=== PATIENT | female | born 1945 | race Caucasian/White ===

== ENCOUNTER 2018-02-15 00:01 | Inpatient (IN) | payer MEDICARE ==
--- NOTE | 2018-02-15 00:27 | EDM.PDOC ---
ED HPI GENERAL MEDICAL PROBLEM - General Chief Complaint: Abdominal Pain Stated Complaint: [facility] Time Seen by Provider: 02/15/18 00:05 Source of Information: Reports: Patient, EMS History Limitations: Reports: No Limitations - History of Present Illness INITIAL COMMENTS - FREE TEXT/NARRATIVE: 72-year-old female was had back pain most of the day, which progressed into abdominal pain this afternoon was seen in the emergency room down in [place] and diagnosed with a partial small bowel obstruction. Her symptoms are fairly well-controlled with pain medication. She had several episodes of emesis today, but she has had 3 bowel movements. No fevers or chills. She was sent up here for treatment as there hospital was full and she originally received her surgeries including gastric bypass here in [place]. Onset: Gradual Severity: Moderate (Over the course of the day symptoms worsened) Associated Symptoms: Reports: Loss of Appetite, Nausea/Vomiting. Denies: Cough Abdominal Pain Score (Numeric/FACES): 2 - Related Data Allergies Allergy/AdvReac Type Severity Reaction Status Date / Time No Known Allergies Allergy Verified 02/15/18 00:38 Home Meds: Home Meds Calcium Carbonate [Calcium] 1,000 mg PO DAILY 02/15/18 [History] Cholecalciferol (Vitamin D3) [Vitamin D] 1,000 unit PO DAILY 02/15/18 [History] Gabapentin [Neurontin] 300 mg PO DAILY PRN 02/15/18 [History] Vitamin B Complex 1 cap PO DAILY 02/15/18 [History] ED ROS GENERAL - Review of Systems Review Of Systems: See Below Constitutional: Reports: Malaise. Denies: Fever, Chills, Weakness HEENT: Reports: No Symptoms Respiratory: Denies: Shortness of Breath Cardiovascular: Denies: Chest Pain GI/Abdominal: Reports: Abdominal Pain, Nausea, Vomiting : Reports: No Symptoms Neurological: Reports: No Symptoms ED EXAM, GI/ABD - Physical Exam Exam: See Below Exam Limited By: No Limitations General Appearance: Alert, No Apparent Distress (Looks uncomfortable but not distressed) Eyes: Bilateral: Normal Appearance (No jaundice) Respiratory/Chest: No Respiratory Distress, Lungs Clear Cardiovascular: Regular Rate, Rhythm GI/Abdominal Exam: Normal Bowel Sounds, Tender (She is tender to palpation across the center of the abdomen, no focal guarding or rebound) Course - Vital Signs Last Recorded V/S: Last Vital Signs Temp 97.4 F 02/15/18 01:10 Pulse 79 02/15/18 01:10 Resp 16 02/15/18 01:10 BP 136/59 L 02/15/18 01:10 Pulse Ox 93 L 02/15/18 01:19 - Orders/Labs/Meds Orders: Medication Orders Hydromorphone HCl (Dilaudid Hand Dry Cleaner 15 Mg In Ns 30 Ml) 15 mg IV ASDIRECTED SHAHZAD; Protocol Last Admin: 02/15/18 01:46 Dose: 15 mg Dextrose/Lactated Ringer's (Dextrose 5%-Lactated Ringers) 1,000 mls @ 125 mls/ hr IV ASDIRECTED SHAHZAD Last Admin: 02/15/18 01:45 Dose: 125 mls/hr Ondansetron HCl (Zofran) 4 mg IV Q4H PRN PRN Reason: NAUSEA Meds: Medications Generic Name Dose Route Start Last Admin Trade Name Freq PRN Reason Stop Dose Admin Hydromorphone HCl 15 mg 02/15/18 01:30 02/15/18 01:46 Dilaudid Hand Dry Cleaner 15 Mg In Ns 30 Ml IV 15 mg ASDIRECTED SHAHZAD Administration Protocol Dextrose/Lactated Ringer's 1,000 mls @ 125 mls/hr 02/15/18 01:15 02/15/18 01: 45 Dextrose 5%-Lactated Ringers IV 125 mls/hr ASDIRECTED SHAHZAD Administration Ondansetron HCl 4 mg 02/15/18 01:04 Zofran IV Q4H PRN NAUSEA - Re-Assessments/Exams Free Text/Narrative Re-Assessment/Exam: 02/15/18 00:26 Patient is stable and afebrile. We should be able to treat her as an inpatient overnight with pain control and hydration, and she can get a surgical assessment in the morning. Dr. Novoa was informed and will provide orders. Departure - Departure Time of Disposition: 00:40 Disposition: Admitted As Inpatient 65 Condition: Fair Clinical Impression: Small bowel obstruction - Discharge Information
[2018-02-15] MEDS ORDERED: Ondansetron 4 MG/2 ML SDV IV PRN (01:04)
[2018-02-15] MEDS ORDERED: Dextrose 5%-Lactated Ringers 1,000 ML IV SCH ×2 (01:15→11:45)
[2018-02-15] MEDS ORDERED: HYDROmorphone/Normal Saline 15 MG/30 ML PCA IV SCH (01:30)
[2018-02-15] MEDS ORDERED: Midazolam 1 MG/ML 2 ML SDV ONE (07:56)
[2018-02-15] MEDS ORDERED: fentaNYL 250 MCG/5 ML SDV ONE (07:56)
[2018-02-15] MEDS ORDERED: Ropivacaine 35 ML, Dexamethasone 8 MG, EPINEPHrine 0.4 MG, Sodium Chloride 0.9% 42.6 ML NERVRT SCH ×4 (08:00)
[2018-02-15] MEDS ORDERED: Ketamine 500 MG/5 ML MDV IV SCH (08:00)
[2018-02-15] MEDS ORDERED: cefOXitin 2 GM in Sodium Chloride 0.9% 50 ML IV ONE (08:00)
[2018-02-15] MEDS ORDERED: Rocuronium 50 MG/5 ML Vial ONE (08:19)
[2018-02-15] MEDS ORDERED: Propofol 200 MG/20 ML SDV ONE (08:19)
[2018-02-15] MEDS ORDERED: Glycopyrrolate 0.2 MG/ML 5 ML MDV ONE (08:19)
[2018-02-15] MEDS ORDERED: Dexamethasone 4 MG/ML SDV ONE (08:19)
[2018-02-15] MEDS ORDERED: Ondansetron 4 MG/2 ML SDV ONE (08:19)
[2018-02-15] MEDS ORDERED: Succinylcholine 200 MG/10 ML MDV ONE (08:19)
[2018-02-15] MEDS ORDERED: Neostigmine Methylsulfate 1 MG/ML 5 ML Syringe ONE (08:19)
[2018-02-15] MEDS ORDERED: Meropenem 500 MG SDV ONE (08:41)
[2018-02-15] MEDS ORDERED: Meropenem 500 MG SDV IRR ONE (08:45)
[2018-02-15] MEDS ORDERED: Naloxone 0.4 MG/ML SDV IV PRN (12:00)
[2018-02-15] MEDS ORDERED: Labetalol 20 MG/4 ML Syringe IVPUSH PRN (12:00)
[2018-02-15] MEDS ORDERED: hydrOXYzine HCl 100 MG/2 ML SDV IM PRN (12:00)
[2018-02-15] MEDS ORDERED: SCOPOLAMINE PATCH CHECK TOP SCH (12:00)
[2018-02-15] MEDS ORDERED: diphenhydrAMINE 50 MG/ML SDV IVPUSH PRN (12:00)
[2018-02-15] MEDS ORDERED: Metoclopramide 10 MG/2 ML SDV IVPUSH PRN (12:00)
[2018-02-15] MEDS: Acetaminophen Soln 650 MG/20.3 ML UD Cup PO SCH ×2 (14:05→17:09)
[2018-02-15] MEDS: Gabapentin 250 MG/5 ML Solution ML 470 ML Bottle PO SCH ×2 (14:06→22:04)
[2018-02-15] MEDS: cefOXitin 2 GM in Sodium Chloride 0.9% 50 ML IV SCH ×2 (15:27→22:05)
[2018-02-15] MEDS: MVI, Adult with Vitamin K 10 ML, Thiamine 200 MG, Chromium/Copper/Mang/Selen/Zn 1 ML in... IV SCH ×4 (15:27)
[2018-02-15] MEDS: Pantoprazole 40 MG Vial IVPUSH SCH (17:08)
[2018-02-15] MEDS: Heparin Sodium 5,000 Units/ML Vial SUBCUT SCH (17:08)
[2018-02-16] MEDS: Acetaminophen Soln 650 MG/20.3 ML UD Cup PO SCH ×4 (01:00→17:09)
[2018-02-16] MEDS: cefOXitin 2 GM in Sodium Chloride 0.9% 50 ML IV SCH ×2 (02:14→08:38)
[2018-02-16] MEDS ORDERED: Iohexol 647 MG/ML 50 ML SDV PO SCH (04:00)
[2018-02-16] MEDS: Heparin Sodium 5,000 Units/ML Vial SUBCUT SCH ×2 (06:21→17:09)
[2018-02-16] MEDS ORDERED: HYDROmorphone 2 MG Tab PO PRN (07:55)
[2018-02-16] MEDS ORDERED: Dextrose 5%-Lactated Ringers 1,000 ML IV SCH (08:00)
[2018-02-16] MEDS: Gabapentin 250 MG/5 ML Solution ML 470 ML Bottle PO SCH ×3 (08:40→20:49)
[2018-02-16] MEDS: Celecoxib 200 MG Cap PO SCH (08:40)
[2018-02-16] MEDS ORDERED: Docusate Sodium Liquid 100 MG/10 ML UD Cup JTUBE SCH (09:00)
[2018-02-16] MEDS ORDERED: Magnesium Hydroxide 400 MG/5 ML Susp 30 ML Cup JTUBE SCH (09:00)
[2018-02-16] MEDS: Magnesium Sulfate/Water 2 GM in Premix Bag 1 BAG IV SCH ×3 (10:17→22:08)
[2018-02-16] MEDS: MVI, Adult with Vitamin K 10 ML, Thiamine 200 MG, Chromium/Copper/Mang/Selen/Zn 1 ML in... IV SCH ×4 (17:08)
[2018-02-16] MEDS: Pantoprazole 40 MG Vial IVPUSH SCH (17:09)
--- NOTE | 2018-02-16 17:18 | PN ---
DATE OF SERVICE: 02/16/2018 The patient has been afebrile with stable vital signs subsequent to revision of her jejunojejunostomy and lysis of adhesions yesterday. No major problems were noted overnight. She is little bit sleepy, but not receiving much in the way of pain medicine. We will order oral Dilaudid in addition to the Tylenol, Celebrex, and gabapentin orally today. 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 Magnesium is marginally low and that will be supplemented today. Santana Novoa MD /[id number]
[2018-02-17] MEDS: Acetaminophen Soln 650 MG/20.3 ML UD Cup PO SCH ×3 (00:10→11:23)
[2018-02-17] MEDS: Magnesium Sulfate/Water 2 GM in Premix Bag 1 BAG IV SCH (03:42)
[2018-02-17] MEDS: Heparin Sodium 5,000 Units/ML Vial SUBCUT SCH (05:54)
[2018-02-17] MEDS: Celecoxib 200 MG Cap PO SCH (08:07)
[2018-02-17] MEDS: Gabapentin 250 MG/5 ML Solution ML 470 ML Bottle PO SCH (08:09)
[2018-02-17] MEDS ORDERED: Cyanocobalamin (Vitamin B12) 1,000 MCG/ML SDV IM ONE (09:00)
--- NOTE | 2018-02-17 09:27 | CR ---
UGI wo KUB HISTORY: eval R-Y GBP FINDINGS: After administration of oral contrast, upright views were obtained. Post operative changes gastric bypass. Surgical drains in place. No evidence for leak. Contrast passes freely into proximal small bowel loops. Surgical clips right upper quadrant. IMPRESSION: No evidence for leak or obstruction.
--- NOTE | 2018-02-18 07:56 | DISCH ---
ADMISSION DIAGNOSES: 1. Partial small bowel obstruction. 2. SP Nagelica-en-Y gastric bypass surgery. 3. Unspecified surgical malabsorption. 4. B12 deficiency. 5. Elevated blood pressure, urge incontinence, and trigeminal neuralgia. DISCHARGE DIAGNOSES: Exploratory laparotomy with lysis of extensive adhesions and resection and revision of the jejunostomy component of the Angelica-en-Y gastric bypass surgery and repair of incarcerated incisional hernia and placement of Interceed mesh for adhesive small bowel obstruction with fixed stricture at the JJ and incarcerated incisional hernia and extensive adhesions. Date of surgery 02/15/2018. Surgeon, Santana Novoa MD. HISTORY: Latha Holloway is a 72-year-old female who was transferred by ambulance from [place], [place]. After preoperative evaluation and discussion of possible risks and possible complications, she wished to proceed with surgical procedure. HOSPITAL COURSE: Latha had her surgery on 02/15/2018. She had no operative complications. On postoperative day #1, she was started on step-3 gastric bypass diet. She was changed to oral pain medication. Her activity was good. On postoperative day #2, she was ready to be discharged to home without any complications. PHYSICAL EXAMINATION: VITAL SIGNS: Latha is a 72-year-old female. Height is 5 feet 2 inches. Weight is 161 pounds. TPR 96.5, 78, 9; prior to that her respirations had been running 16. Blood pressure 96/59. O2 by pulse oximetry is 99%. HEENT: Negative. NECK: Supple. HEART: Regular rate and rhythm. LUNGS: Clear. ABDOMEN: Aquacel dressing is over incision. This will be removed prior to discharge. Abdominal binder is on. EXTREMITIES: Without peripheral edema. DISPOSITION: Discharged to home. CONDITION: Stable and improving. FOLLOWUP APPOINTMENT: With Anusha Sampson PA-C on 02/26/2018 at 11:00 a.m. HOME MEDICATIONS: 1. Tylenol 650 mg q.6 hours scheduled. 2. Dilaudid 2 mg 1 to 2 every 4 hours p.r.n. pain #30. 3. She is to resume her home medications of vitamin D3, Neurontin 300 mg daily p.r.n. pain, vitamin B complex 1 daily. DISCHARGE INSTRUCTIONS: 1. Diet after discharge, step-3 gastric bypass diet, 65 g of protein, drink 8 to 10 glasses of water a day. 2. Activity; no lifting greater than 10 pounds for 6 weeks. 3. Driving, do not drive while on pain medication. 4. Shower/bathing, may shower. 5. Notify provider if any fever, increased pain, nausea, or vomiting. 6. Keep site clean and dry. 7. Wear abdominal binder for 6 weeks and then as tolerated. 8. Special instruction, use incentive spirometer 10 times every hour while awake for 1 week.
--- NOTE | 2018-02-24 08:08 | OR ---
DATE OF PROCEDURE: 02/15/2018 PREOPERATIVE DIAGNOSIS: Small bowel obstruction. POSTOPERATIVE DIAGNOSES: 1. Adhesive small bowel obstruction associated with fixed stricture at jejunojejunostomy. 2. Incarcerated incisional hernia. 3. Extensive intra-abdominal adhesions. OPERATIVE PROCEDURES: Exploratory laparotomy with lysis of extensive adhesions and: 1. Resection and revision of jejunojejunostomy component of Angelica-en-Y gastric bypass (70771). 2. Repair of incarcerated incisional hernia (29108). 3. Placement of Interceed mesh to limit recurrent adhesion formation between pelvic and abdominal cardoza and underlying viscera (78363). ANESTHESIA: General. INDICATION FOR PROCEDURE: This is a 72-year-old transferred with a picture of small bowel obstruction. She is status post previous Angelica-en-Y gastric bypass. Plan is to proceed with an exploratory laparotomy, and open laparotomy will be undertaken due to the degree of distention of the small bowel and risks inherent with placement of a laparoscopic trocar in that setting, as well as intraoperative spill of the distended bowel upon its manipulation. The possible need for resection was gone over. Potential risks including bleeding, infection, leaks from various GI tract closures, probable recurrent bowel obstruction over time, as well as the possibility of cardiopulmonary, septic, or hemorrhagic complications leading to were all discussed, and the patient wishes to proceed. DETAILS OF PROCEDURE: The patient was taken to the operating room and placed in a supine position. After general endotracheal anesthesia was induced, bilateral subcostal transversus abdominis plane blocks were placed, and the abdomen was prepped and draped. An upper midline incision was made from the umbilicus to roughly two-thirds up toward the xiphoid. This was carried down through the full thickness of the abdominal wall. Upon entering the peritoneal cavity, fairly extensive adhesions were encountered between the small bowel and pelvic and abdominal cardoza. These were taken down, along with omental adhesions. The point of obstruction appeared to be at the point where the Angelica limb entered the jejunojejunostomy. This was acutely angulated, and also it also created quite a bit of back pressure on the biliopancreatic limb. On lysis of adhesions, it became evident that the patient still had a fixed stricture at the point where the Angelica limb came into the jejunojejunostomy, mandating that that anastomosis now be revised. The Angelica limb, as it entered the jejunojejunostomy, was then divided with the MARCO stapler. To facilitate mobility, a small amount of the mesentery beneath the distal end of the Angelica limb was divided with mesenteric loads and this section of small bowel divided and delivered from the field. The patient was noted to have, at this point, a Angelica limb measuring 140 cm, and we then selected the patient to have a common limb of 240 cm with small opening traced back 240 cm from the ileocecal valve. At that point, a roop-rh-yqmw enteroenterostomy, reestablishing the revised jejunojejunostomy, was accomplished with internal firing of the Endo-MARCO 60-mm stapler. The common opening was closed transversely with the same stapler, angles anastomosed, and mesenteric defect approximated with some 3-0 Vicryl stitch, along with a silk stitch for the mesenteric defect and also then reinforced with some fibrin sealant. The abdomen was then irrigated with antibiotic-containing saline solution. So as to limit recurrent adhesion formation between the pelvic and abdominal cardoza and underlying viscera, an Interceed mesh was placed from the pelvis, just above the bladder, upward across the abdominal wall. The midline fascia was then approximated with #2 Vicryl stitch. During the initial entrance into the abdomen, an incarcerated incisional hernia was noted, containing some preperitoneal fat and a tongue of omentum. This was then removed, and the hernia was then closed concurrently with the fascial closure. The subcutaneous tissue was then drained with a 10-Cymraes round Miguel-Akers drain. The incision closed with 3-0 and 4- 0 Vicryl stitch deep and valencia for the skin. Drain was affixed to the skin with a 4-0 Vicryl stitch. The patient was taken to the recovery room in a satisfactory condition. There were no evident complications. Santana Novoa MD /[id number]
== END 2018-02-17 12:10 | disposition home or self-care (01) | DRG 336 ==
LOC: JP.ED 00:01 → JP.2SS 00:29
PROVIDERS: ADMIT Surgery; ATTEND Surgery
PROC: 0DBA0ZX Excision of Jejunum, Open Approach, Diagnostic (ICD-10-PCS; principal; 2018-02-15)
PROC: 0WQF0ZZ Repair Abdominal Wall, Open Approach (ICD-10-PCS; 2018-02-15)
PROC: 3E0M05Z Introduction of Adhesion Barrier into Peritoneal Cavity, Open Approach (ICD-10-PCS; 2018-02-15)
PROC: 0DNU0ZZ Release Omentum, Open Approach (ICD-10-PCS; 2018-02-15)
PROC: 0DN80ZZ Release Small Intestine, Open Approach (ICD-10-PCS; 2018-02-15)
PROC: 0DNW0ZZ Release Peritoneum, Open Approach (ICD-10-PCS; 2018-02-15)
PROC: 3E0T3BZ Introduction of Anesthetic Agent into Peripheral Nerves and Plexi, Percutaneous Approach (ICD-10-PCS; 2018-02-15)
DX: K56.600 Partial intestinal obstruction, unspecified as to cause (principal); K56.51 Intestinal adhesions [bands], with partial obstruction; K91.2 Postsurgical malabsorption, not elsewhere classified; K43.0 Incisional hernia with obstruction, without gangrene; E53.8 Deficiency of other specified B group vitamins; Z98.84 Bariatric surgery status; Z98.0 Intestinal bypass and anastomosis status; R03.0 Elevated blood-pressure reading, without diagnosis of hypertension; N39.41 Urge incontinence; G50.0 Trigeminal neuralgia
CPT/HCPCS: 36415; 74240; 74240-26; 80053; 82728; 83735; 83880; 84100; 85027; 88302; 88307; 94762; 99285; A9270-GY; C9113; J0171; J0330; J0694; J1100; J1170; J1644; J2185; J2250; J2405; J2704; J2710; J2795; J3010; J3411; J3420; J3475; J7042; J7050; Q9967

== ENCOUNTER 2020-07-09 10:07 | Emergency (ER) | payer MEDICARE ==
[2020-07-09] MEDS ORDERED: Sodium Chloride 0.9% 10 ML Syringe FLUSH PRN (11:08)
[2020-07-09] MEDS ORDERED: Sodium Chloride 0.9% 1,000 ML IV ONE (11:10)
[2020-07-09] MEDS ORDERED: Sodium Chloride 0.9% 1,000 ML IV SCH (11:15)
--- NOTE | 2020-07-09 11:20 | EDM.PDOC ---
ED HPI GENERAL MEDICAL PROBLEM - General Chief Complaint: Gastrointestinal Problem Stated Complaint: DIARRHEA Time Seen by Provider: 07/09/20 11:05 Source of Information: Reports: Patient History Limitations: Reports: No Limitations - History of Present Illness INITIAL COMMENTS - FREE TEXT/NARRATIVE: Latha is a very pleasant 75 year old female who presents to the ED today with c /o of a 3 month long hx of diarrhea, described as orange and oily, denies any blood in stool. Patient denies any abdominal pain, nausea or vomiting, hx of gastric bypass with revision 2 years ago. Patient reports that she thinks she may have been on an antibiotic for a UTI prior to the onset of all of this. Taking Pepto with Imodium without any relief. Patient denies any fever. Patient states her stool was checked 3 weeks ago and was "negative for parasites". Patient is not certain if it was checked for Clostridium Difficile, today was the first time she hear that term. Onset: Gradual (3 Months) - Related Data Allergies Allergy/AdvReac Type Severity Reaction Status Date / Time No Known Allergies Allergy Verified 07/09/20 10:45 Home Meds: Home Meds Cholecalciferol (Vitamin D3) [Vitamin D] 1,000 unit PO DAILY 02/15/18 [History] Gabapentin [Neurontin] 100 mg PO TID 02/15/18 [History] Vitamin B Complex 1 cap PO DAILY 02/15/18 [History] Acetaminophen [Tylenol] 650 mg PO Q6H PRN 07/09/20 [History] Cyanocobalamin/Folic Acid [Vitamin J06-[id number] Acid] 1 each PO DAILY 07/09/20 [History] lisinopriL [Lisinopril] 10 mg PO DAILY 07/09/20 [History] Past Medical History HEENT History: Reports: Other (See Below) Other HEENT History: TMJ Cardiovascular History: Reports: Hypertension Respiratory History: Reports: Other (See Below) Other Respiratory History: bronchasscopy for a mass resolved on its own Gastrointestinal History: Reports: Cholelithiasis, Diverticulosis Genitourinary History: Reports: Renal Calculus, Other (See Below) Other Genitourinary History: urge incontinence HELPER ELECTRICAL History: Reports: Fibroids, Musculoskeletal History: Reports: Other (See Below) Other Musculoskeletal History: derangement of lateral meniscus right. bakers cyst Neurological History: Reports: Other (See Below) Other Neuro History: TMJ Endocrine/Metabolic History: Reports: Obesity/BMI 30+ Other Endocrine/Metabolic History: Rny 7 years ago with 140lb weight loss Hematologic History: Reports: Other (See Below) Other Hematologic History: neutropenia - Infectious Disease History Infectious Disease History: Reports: Chicken Pox - Past Surgical History HEENT Surgical History: Reports: Other (See Below) Other HEENT Surgeries/Procedures: throat and nose for sleep apena Cardiovascular Surgical History: Reports: None Respiratory Surgical History: Reports: Lung Biopsies GI Surgical History: Reports: Bariatric Procedure, Cholecystectomy, Tasia Fundoplication Other GI Surgeries/Procedures: palatectomy partial Female Surgical History: Reports: Breast Biopsy, Hysterectomy Neurological Surgical History: Reports: None Musculoskeletal Surgical History: Reports: None Social & Family History - Tobacco Use Smoking Status *Q: Never Smoker - Caffeine Use Caffeine Use: Reports: Coffee - Recreational Drug Use Recreational Drug Use: No ED ROS GENERAL - Review of Systems Review Of Systems: Comprehensive ROS is negative, except as noted in HPI. ED EXAM, GI/ABD - Physical Exam Exam: See Below Exam Limited By: No Limitations General Appearance: Alert, WD/WN, No Apparent Distress Nose: Normal Inspection Throat/Mouth: Normal Inspection Head: Atraumatic Neck: Normal Inspection Cardiovascular: Normal Peripheral Pulses, Regular Rate, Rhythm GI/Abdominal Exam: Normal Bowel Sounds, Soft, Non-Tender, Abnormal Bowel Sounds (Hyperactive) Back Exam: Normal Inspection Extremities: Normal Inspection Neurological: Alert, Oriented, CN II-XII Intact Psychiatric: Normal Affect, Normal Mood Lymphatic: No Adenopathy Course - Vital Signs Last Recorded V/S: Last Vital Signs Temp 36.3 C 07/09/20 10:39 Pulse 82 07/09/20 10:39 Resp 16 07/09/20 10:39 BP 173/79 H 07/09/20 10:39 Pulse Ox 99 07/09/20 10:39 Latha is a very pleasant 75 year old female, presents with a 3 month hx of diarrhea, please refer to HPI and focused exam. Patient here is mildly hypertensive but otherwise hemodynamically stable and afebrile. Exam reveals some mild hyperactive bowel sounds and mild pallor, otherwise negative. C diff is negative today. White count is normal, HGB stable, patient mildly elevated creatinine and BUN consistent with mild dehydration. Electrolytes are stable. Patient was given a liter of NS and is feeling much better. Stool here was actually soft, no liquid in nature. Patient strongly encouraged to start probiotics pending enteric culture and stay well hydrated. Patient can follow up with primary surgeon next week given hx of Gastric Bypass and revision. Patient may benefit from GI referral if symptoms persist. Reasons to return to the ED were discussed. Patient and agreeable and patient discharged in stable condition. - Orders/Labs/Meds Orders: Active Orders 24 hr Category Date Time Status Peripheral IV Care [RC] . DIRECTED Care 07/09/20 11:08 Active CULTURE STOOL + SHIGATOX [RM] Stat Lab 07/09/20 11:30 Received Sodium Chloride 0.9% [Normal Saline] 1,000 ml Med 07/09/20 11:15 Active IV ASDIRECTED Sodium Chloride 0.9% [Saline Flush] Med 07/09/20 11:08 Active 10 ml FLUSH ASDIRECTED PRN Peripheral IV Insertion Adult [OM.PC] Routine Oth 07/09/20 11:08 Ordered Medication Orders Sodium Chloride (Normal Saline) 1,000 mls @ 150 mls/hr IV ASDIRECTED SHAHZAD Sodium Chloride (Saline Flush) 10 ml FLUSH ASDIRECTED PRN PRN Reason: Keep Vein Open Last Admin: 07/09/20 11:30 Dose: 10 ml Documented by: PREILOR Labs: Laboratory Tests 07/09/20 07/09/20 Range/Units 11:29 11:29 WBC 4.5 (4.5-11.0) K/uL RBC 4.46 (3.30-5.50) M/uL Hgb 13.3 (12.0-15.0) g/dL Hct 41.4 (36.0-48.0) % MCV 93 (80-98) fL MCH 30 (27-31) pg MCHC 32 (32-36) % Plt Count 205 (150-400) K/uL Neut % (Auto) 61 (36-66) % Lymph % (Auto) 29 (24-44) % Bacon % (Auto) 9 H (2-6) % Eos % (Auto) 0 L (2-4) % Baso % (Auto) 1 (0-1) % Sodium 147 (140-148) mmol/L Potassium 4.5 (3.6-5.2) mmol/L Chloride 110 H (100-108) mmol/L Carbon Dioxide 28 (21-32) mmol/L Anion Gap 13.5 (5.0-14.0) mmol/L BUN 22 H D (7-18) mg/dL Creatinine 1.1 H (0.6-1.0) mg/dL Est Cr Clr Drug Dosing 34.41 mL/min Estimated GFR (MDRD) 48 L (>60) Glucose 87 (74-106) mg/dL Calcium 8.1 L (8.5-10.1) mg/dL Magnesium 2.0 (1.8-2.4) mg/dL Total Bilirubin 0.7 (0.2-1.0) mg/dL AST 26 D (15-37) U/L ALT 41 D (12-78) U/L Alkaline Phosphatase 135 H (46-116) U/L C-Reactive Protein < 0.05 (0.0-0.3) mg/dL Total Protein 5.5 L (6.4-8.2) g/dL Albumin 2.8 L (3.4-5.0) g/dL Globulin 2.7 (2.3-3.5) g/dL Albumin/Globulin Ratio 1.0 L (1.2-2.2) Lipase 49 L (73-393) U/L Meds: Medications Generic Name Dose Route Start Last Admin Trade Name Freq PRN Reason Stop Dose Admin Sodium Chloride 1,000 mls @ 150 mls/hr 07/09/20 11:15 Normal Saline IV ASDIRECTED SHAHZAD Sodium Chloride 10 ml 07/09/20 11:08 07/09/20 11:30 Saline Flush FLUSH 10 ml ASDIRECTED PRN Administration Keep Vein Open Discontinued Medications Generic Name Dose Route Start Last Admin Trade Name Freq PRN Reason Stop Dose Admin Sodium Chloride 1,000 mls @ 500 mls/hr 07/09/20 11:10 07/09/20 11:29 Normal Saline IV 07/09/20 13:09 500 mls/hr .BOLUS ONE Administration Departure - Departure Time of Disposition: 14:00 Disposition: Home, Self-Care 01 Condition: Good Clinical Impression: Diarrhea - Discharge Information Instructions: Diarrhea, Adult, Amhy-wk-Ovnu, Diarrhea, Adult Referrals: PCP,None [Primary Care Provider] - Forms: ED Department Discharge Additional Instructions: Latha, it was so nice meeting you today. I would strongly encourage you to start a probiotic, specifically Culturelle, which can be found over the counter, take this twice daily until diarrhea resolves, then once daily from then on. Please follow up with Dr. Novoa in the next week after you receive you stool c ulture results. Stay well hydrated. Return here with any worsening symptoms or new concerns. Take care and I hope you feel better soon. Sepsis Event Note (ED) - Evaluation Sepsis Screening Result: No Definite Risk - Focused Exam Vital Signs: Vital Signs Temp Pulse Resp BP Pulse Ox 07/09/20 10:39 36.3 C 82 16 173/79 H 99 - My Orders Last 24 Hours: My Active Orders 07/09/20 11:08 Peripheral IV Care [RC] . DIRECTED Sodium Chloride 0.9% [Saline Flush] 10 ml FLUSH ASDIRECTED PRN Peripheral IV Insertion Adult [OM.PC] Routine 07/09/20 11:15 Sodium Chloride 0.9% [Normal Saline] 1,000 ml IV ASDIRECTED 07/09/20 11:30 CULTURE STOOL + SHIGATOX [RM] Stat - Assessment/Plan Last 24 Hours: My Active Orders 07/09/20 11:08 Peripheral IV Care [RC] . DIRECTED Sodium Chloride 0.9% [Saline Flush] 10 ml FLUSH ASDIRECTED PRN Peripheral IV Insertion Adult [OM.PC] Routine 07/09/20 11:15 Sodium Chloride 0.9% [Normal Saline] 1,000 ml IV ASDIRECTED 07/09/20 11:30 CULTURE STOOL + SHIGATOX [RM] Stat
== END 2020-07-09 13:59 | disposition home or self-care (01) ==
LOC: JP.ED 10:07
DX: R19.7 Diarrhea, unspecified (principal); I10 Essential (primary) hypertension; E66.9 Obesity, unspecified; Z68.21 Body mass index [BMI] 21.0-21.9, adult; Z79.899 Other long term (current) drug therapy; Z90.49 Acquired absence of other specified parts of digestive tract
CPT/HCPCS: 36415; 80053; 83690; 83735; 85025; 86140; 87046; 87493; 87899; 96360; 96361; 99284; J7030

== ENCOUNTER 2021-01-16 06:50 | Day surgery (SDC) | payer MEDICARE ==
[2021-01-16] MEDS ORDERED: Propofol 200 MG/20 ML SDV ONE (07:04)
[2021-01-16] MEDS ORDERED: fentaNYL 100 MCG/2 ML SDV ONE (07:04)
[2021-01-16] MEDS ORDERED: Midazolam 1 MG/ML 2 ML SDV ONE (07:04)
[2021-01-16] MEDS ORDERED: Dextrose 5%-Lactated Ringers 1,000 ML IV SCH (07:30)
--- NOTE | 2021-02-06 13:54 | OR ---
DATE OF PROCEDURE: 01/16/2021 SURGEON: Santana Novoa MD PREOPERATIVE DIAGNOSIS: Frequent loose bowel movements. POSTOPERATIVE DIAGNOSES: Frequent loose bowel movements with: 1. Possible minimal colitis involving cecum and ascending colon. 2. Single small polyp (2 mm) descending colon. 3. Uncomplicated left colonic diverticulosis. OPERATIVE PROCEDURE: Flexible colonoscopy with: 1. Random biopsies of cecum and ascending colon to rule out microscopic colitis. 2. Polypectomy by snare technique of descending colon polyp. INDICATIONS FOR PROCEDURE: A 75-year-old female presenting with diarrhea and on CT scan was noted to have some thickening of the colon particularly in the cecum and ascending colon. Plan is to proceed with a colonoscopy with biopsies and/or polypectomy as indicated. Potential risks including bleeding and perforation were discussed, and the patient wishes to proceed. DETAILS OF PROCEDURE: The patient was taken to the operating room and placed in a left lateral decubitus position. IV sedation was administered, after which the initial digital rectal exam was performed and was unremarkable. Colonoscope was then passed to the level of the cecum. Retroflexion in the rectum revealed uncomplicated hemorrhoidal columns. The patient was noted to have some uncomplicated left colonic diverticulosis. Otherwise, there was a single small polyp in the descending colon measuring around 2 mm. The findings in the colonic mucosa per se were otherwise unremarkable with there being no discernable colitis, specifically none in the cecum or ascending colon. At this point, biopsies were obtained from the cecum and ascending colon to rule out microscopic colitis. On withdrawal of the scope to the level of the polyp in the descending colon, this was encircled at its base with a cautery snare and removed and sent for histologic evaluation. Good hemostasis was noted at the snaring site and the scope was then withdrawn and the above findings reconfirmed. Overall, the prep was very good with only small amount of liquid stool being present. The patient was taken to the recovery room in satisfactory condition. Assuming that the present polyp is an adenomatous polyp of some type, the next colonoscopy should be in 3 years. If the biopsies of the cecum and ascending colon mucosa show colitis, then medical treatment would be initiated for that. Otherwise, she will be following up with Anusha Sampson in 1 month. She will also be set up to meet Dietary to review possible food intolerances that might be contributing to loose bowel movements. Santana Novoa MD /[id number]
== END 2021-01-16 10:35 | disposition home or self-care (01) ==
LOC: JP.SDS 06:50
PROVIDERS: ATTEND Surgery
DX: D12.4 Benign neoplasm of descending colon (principal); K57.30 Diverticulosis of large intestine without perforation or abscess without bleeding; K64.9 Unspecified hemorrhoids; I10 Essential (primary) hypertension
CPT/HCPCS: 88305; J2250; J2704; J3010; J7121

== ENCOUNTER 2021-05-16 20:50 | Inpatient (IN) | payer MEDICARE ==
[2021-05-16] MEDS ORDERED: Ondansetron 4 MG/2 ML SDV IVPUSH PRN (21:49)
[2021-05-16] MEDS ORDERED: Acetaminophen 325 MG Tab PO PRN (21:50)
[2021-05-16] MEDS ORDERED: HYDROmorphone 0.5 MG/0.5 ML Syringe IVPUSH PRN (21:51)
[2021-05-16] MEDS ORDERED: Pantoprazole 40 MG Vial IVPUSH SCH (23:30)
[2021-05-16] MEDS: Dextrose 5%-Lactated Ringers 1,000 ML IV SCH (23:51)
--- NOTE | 2021-05-17 06:46 | PCM.HP.2 ---
H&P History of Present Illness - General Date of Service: 05/17/21 Source of Information: Patient History Limitations: Reports: No Limitations - History of Present Illness Initial Comments - Free Text/Narative: Latha reports eating her normal breakfast around 8:00 am and felt good until she developed a sudden onset of severe pain around her umbilicus that radiated to her right and left lower quadrants. States she thought she was having an appendicitis. Last Bm was before 8:00 am. No nausea until she got some pain medication at the ED in [place]. No vomiting or associated signs and symptoms. This morning she states she has no pain and is hungry. States she is feeling tired but not sick. Passing gas. Bilateral Abdominal Pain Score (Numeric/FACES): 0 - Related Data Allergies/Adverse Reactions: Allergies Allergy/AdvReac Type Severity Reaction Status Date / Time No Known Allergies Allergy Verified 07/09/20 10:45 Home Medications: Home Meds Cholecalciferol (Vitamin D3) [Vitamin D] 1,000 unit PO BID 02/15/18 [History] Gabapentin [Neurontin] 300 mg PO TID 02/15/18 [History] Vitamin B Complex 1 cap PO BID 02/15/18 [History] Cyanocobalamin/Folic Acid [Vitamin L72-Nwbqx Acid] 1 each PO BID 07/09/20 [Histo ry] lisinopriL [Lisinopril] 10 mg PO DAILY 07/09/20 [History] Diphenoxylate HCl/Atropine [Lomotil Tablet] 1 each PO QID PRN 01/12/21 [History] Lipase/Protease/Amylase [Creon Dr 36,000 Units Capsule] 1 each PO QID 01/12/21 [History] Multivitamin [Multi-Day Vitamins] 1 each PO BID 01/12/21 [History] Beta-Carotene [Beta Carotene] 25,000 unit PO DAILY 05/16/21 [History] Bismuth Subsalicylate 30 ml PO BID 05/16/21 [History] Past Medical History HEENT History: Reports: Impaired Vision, Other (See Below) Other HEENT History: TMJ. wears glasses Cardiovascular History: Reports: Hypertension Respiratory History: Reports: Other (See Below) Other Respiratory History: bronchasscopy for a mass resolved on its own Gastrointestinal History: Reports: Cholelithiasis, Chronic Diarrhea, Diverticulosis, GERD Genitourinary History: Reports: Renal Calculus, Other (See Below) Other Genitourinary History: urge incontinence BINDER ROLLER History: Reports: Fibroids, Musculoskeletal History: Reports: Other (See Below) Other Musculoskeletal History: derangement of lateral meniscus right. bakers cyst Neurological History: Reports: Other (See Below) Other Neuro History: TMJ Endocrine/Metabolic History: Reports: Obesity/BMI 30+ Other Endocrine/Metabolic History: Rny 7 years ago with 140lb weight loss Hematologic History: Reports: Other (See Below) Other Hematologic History: neutropenia Dermatologic History: Reports: Cellulitis - Infectious Disease History Infectious Disease History: Reports: Chicken Pox - Past Surgical History HEENT Surgical History: Reports: Other (See Below) Other HEENT Surgeries/Procedures: throat and nose for sleep apena Cardiovascular Surgical History: Reports: None Respiratory Surgical History: Reports: Lung Biopsies GI Surgical History: Reports: Bariatric Procedure, Cholecystectomy, Colonoscopy, Tasia Fundoplication Other GI Surgeries/Procedures: palatectomy partial Female Surgical History: Reports: Breast Biopsy, Hysterectomy, Oophorectomy Endocrine Surgical History: Reports: None Neurological Surgical History: Reports: None Musculoskeletal Surgical History: Reports: None Dermatological Surgical History: Reports: None Social & Family History - Family History Family Medical History: No Pertinent Family History - Tobacco Use Tobacco Use Status *Q: Never Tobacco User Second Hand Smoke Exposure: No - Caffeine Use Caffeine Use: Reports: Coffee - Recreational Drug Use Recreational Drug Use: No H&P Review of Systems - Review of Systems: Review Of Systems: See Below General: Reports: Fatigue HEENT: Reports: No Symptoms Pulmonary: Reports: No Symptoms Cardiovascular: Reports: No Symptoms Gastrointestinal: Reports: No Symptoms (Reports abdominal pain is gone. Feels tenderness when she presses on her abdomen by her umbilicus where the pain was yesterday.) Genitourinary: Reports: No Symptoms Musculoskeletal: Reports: No Symptoms Skin: Reports: No Symptoms Psychiatric: Reports: No Symptoms Neurological: Reports: No Symptoms Hematologic/Lymphatic: Reports: No Symptoms Immunologic: Reports: No Symptoms Exam - Exam Exam: See Below - Vital Signs Vital Signs: Last Vital Signs Temp 96.1 F L 05/17/21 03:44 Pulse 46 L 05/17/21 03:44 Resp 16 05/17/21 03:44 BP 139/55 L 05/17/21 03:44 Pulse Ox 96 05/17/21 03:44 Weight: 106 lb 7.732 oz - Exam Quality Assessment: DVT Prophylaxis General: Alert, Oriented, Cooperative HEENT: PERRLA, Conjunctiva Clear Neck: Supple, Trachea Midline Lungs: Clear to Auscultation, Normal Respiratory Effort Cardiovascular: Regular Rate, Regular Rhythm GI/Abdominal Exam: Soft, No Distention, Other (Minimal tenderness in the periumbilical area. No guarding. ) (Female) Exam: Deferred Rectal (Female) Exam: Deferred Back Exam: Normal Inspection, Full Range of Motion Extremities: Normal Inspection, Normal Range of Motion, No Pedal Edema Skin: Warm, Dry, Intact Neurological: Cranial Nerves Intact, Reflexes Equal Bilateral Neuro Extensive - Mental Status: Alert, Oriented x3, Normal Mood/Affect, Memory Intact Neuro Extensive - Motor, Sensory, Reflexes: CN II-XII Intact, Normal Gait Psychiatric: Alert, Normal Affect, Normal Mood - Patient Data Lab Results Last 24 hrs: Laboratory Results - last 24 hr 05/17/21 05/17/21 Range/Units 04:37 04:37 WBC 3.2 L (4.5-11.0) K/uL RBC 3.58 (3.30-5.50) M/uL Hgb 11.1 L D (12.0-15.0) g/dL Hct 33.9 L (36.0-48.0) % MCV 95 (80-98) fL MCH 31 (27-31) pg MCHC 33 (32-36) % Plt Count 190 (150-400) K/uL Neut % (Auto) 44.8 (36-66) % Lymph % (Auto) 41.6 (24-44) % [place] % (Auto) 9.8 H (2-6) % Eos % (Auto) 3.5 (2-4) % Baso % (Auto) 0.3 (0-1) % Sodium 148 (140-148) mmol/L Potassium 3.4 L (3.6-5.2) mmol/L Chloride 112 H (100-108) mmol/L Carbon Dioxide 24 (21-32) mmol/L Anion Gap 15.4 H (5.0-14.0) mmol/L BUN 12 (7-18) mg/dL Creatinine 0.7 (0.6-1.0) mg/dL Est Cr Clr Drug Dosing 52.13 mL/min Estimated GFR (MDRD) > 60 (>60) Glucose 97 (74-106) mg/dL Calcium 7.9 L (8.5-10.1) mg/dL Phosphorus 3.8 (2.5-4.9) mg/dL Magnesium 1.7 L (1.8-2.4) mg/dL Total Bilirubin 0.8 (0.2-1.0) mg/dL AST 20 (15-37) U/L ALT 31 (12-78) U/L Alkaline Phosphatase 101 (46-116) U/L Total Protein 5.2 L (6.4-8.2) g/dL Albumin 2.7 L (3.4-5.0) g/dL Globulin 2.5 (2.3-3.5) g/dL Albumin/Globulin Ratio 1.1 L (1.2-2.2) Result Diagrams: 05/17/21 04:37 05/17/21 04:37 Sepsis Event Note - Evaluation Sepsis Screening Result: No Definite Risk - Focused Exam Vital Signs: Vital Signs Temp Pulse Resp BP Pulse Ox 05/17/21 03:44 96.1 F L 46 L 16 139/55 L 96 05/16/21 23:06 95.7 F L 91 12 162/49 H 97 - Problem List (1) Partial small bowel obstruction SNOMED Code(s): 519557880 ICD Code: K56.600 - PARTIAL INTESTINAL OBSTRUCTION, UNSPECIFIED TO CAUSE Status: Acute Current Visit: Yes Problem List Initiated/Reviewed/Updated: Yes Orders Last 24hrs: Active Orders 24 hr Category Date Time Status Notify Provider Intake and Out [RC] ASDIRECTED Care 05/16/21 21:58 Active NPO [Nothing Per Oral Diet] [DIET] Diet 05/17/21 Breakfast Active Abdomen 2V AP Flat Upright [CR] Routine Exams 05/17/21 03:00 Taken Acetaminophen [TylenoL] Med 05/16/21 21:50 Active 650 mg PO Q6H PRN Dextrose 5%-Lactated Ringers 1,000 ml Med 05/16/21 22:00 Active IV ASDIRECTED HYDROmorphone [Dilaudid] Med 05/16/21 21:51 Active 0.5 mg IVPUSH Q2H PRN Ondansetron [Zofran] Med 05/16/21 21:49 Active 4 mg IVPUSH Q4H PRN Pantoprazole [ProTONIX IV] Med 05/16/21 23:30 Active 40 mg IVPUSH Q24H Sequential Compression Device [OM.PC] Routine Oth 05/16/21 21:58 Ordered Code Status [Resuscitation Status] Routine Resus Stat 05/16/21 23:58 Ordered Medication Orders Acetaminophen (Acetaminophen 325 Mg Tab) 650 mg PO Q6H PRN PRN Reason: Pain Hydromorphone HCl (Hydromorphone 0.5 Mg/0.5 Ml Syringe) 0.5 mg IVPUSH Q2H PRN PRN Reason: Pain (moderate 4-6) Dextrose/Lactated Ringer's (Dextrose 5%-Lactated Ringers) 1,000 mls @ 100 mls/hr IV ASDIRECTED [facility] Last Admin: 05/16/21 23:51 Dose: 100 mls/hr Documented by: JUJU Ondansetron HCl (Ondansetron 4 Mg/2 Ml Sdv) 4 mg IVPUSH Q4H PRN PRN Reason: Nausea/Vomiting Pantoprazole Sodium (Pantoprazole 40 Mg Vial) 40 mg IVPUSH Q24H [facility] Last Admin: 05/16/21 23:51 Dose: 40 mg Documented by: JUJU Assessment/Plan Comment:: Assessment: Partial Small Bowel Obstruction 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 Gaurang Benson and if ok with him. Brend Continue IV Fluids May Shower Add LR with MVIs this am Check labs in AM and Repeat Abdominal Flat and Upright in AM Gaurang Benson MD will be seeing patient this AM Orders subject to change after seeing patient Plan of Admission 2 nights and 3 days if no surgery Anusha Alberto 05/17/2021 - Mortality Measure Prognosis:: Good
[2021-05-17] MEDS ORDERED: Potassium Chloride 20 MEQ, Lidocaine 1% 2 ML in Sodium Chloride 0.9% 100 ML IV SCH (09:00)
--- NOTE | 2021-05-17 09:58 | CR ---
Abdomen 2V AP Flat Upright CLINICAL HISTORY: Abdominal pain FINDINGS: No free air is identified. There is some air-filled colon in the mid abdomen similar to the CT from 05/16/2021. There is contrast in the bladder from prior CT. Patient has had previous bariatric surgery. IMPRESSION: Air-filled mildly dilated transverse colon similar to prior CT Previous bariatric surgery
[2021-05-17] MEDS ORDERED: MVI, Adult with Vitamin K 10 ML, Thiamine 200 MG, Zinc/Copper/Manganese/Selenium 1 ML i... IV ONE ×4 (10:00)
[2021-05-17] MEDS: Docusate Sodium 100 MG Cap PO SCH ×2 (10:05→21:19)
[2021-05-17] MEDS: Magnesium Hydroxide 400 MG/5 ML Susp 30 ML Cup PO SCH ×2 (10:05→17:44)
[2021-05-17] MEDS: Polyethylene Glycol 3350 Powder 17 GM Packet PO SCH (10:05)
--- NOTE | 2021-05-17 10:20 | CONS ---
DATE OF SERVICE: 05/17/2021 REFERRING PHYSICIAN: CONSULTING PHYSICIAN: Gaurang Benson MD CONSULTING SERVICE: Bariatric Surgery. REASON FOR CONSULTATION: Abdominal pain. HISTORY OF PRESENT ILLNESS: This is a pleasant female who was admitted yesterday for abdominal pain. She had a severe pain which really originally started in periumbilical and then became diffuse. The patient is a resident of [place], [place], and was subsequently transferred here. At present, her pain is 0/10 to 1/10. She has no nausea, vomiting, shortness of breath, or chest pain. She is having bowel movements. PAST MEDICAL HISTORY: 1. Angelica-en-Y. 2. Angelica-en-Y revision. 3. Gastroesophageal reflux disease. 4. Diarrhea. 5. Diverticulosis. 6. Hypertension. 7. Urinary incontinence. 8. Orthopedic issues such as meniscal injury, etc. 9. Cholecystectomy. 10.Colonoscopy. 11.Tasia fundoplication. 12.Breast biopsy. 13.Hysterectomy. 14.Oophorectomy. SOCIAL HISTORY: She is not a smoker. FAMILY HISTORY: Noncontributory. REVIEW OF SYSTEMS: GENERAL: Appropriate for condition. HEENT: No symptoms. RESPIRATORY: No shortness of breath. CARDIOVASCULAR: No history of myocardial infarction. GASTROINTESTINAL: The patient was noted to have bowel movement this morning. GENITOURINARY: No symptoms. MUSCULOSKELETAL: No symptoms. PSYCHIATRIC: No symptoms. The remainder review of systems was reviewed and is negative. PHYSICAL EXAMINATION: VITAL SIGNS: Temperature 96.5, blood pressure 130/45, pulse 50, respirations 18, 95% on room air. GENERAL: The patient is appropriate for . HEENT: Pupils are equal. NECK: Supple. LUNGS: Clear. CARDIOVASCULAR: Regular rhythm and rate. RESPIRATORY: Lungs clear to auscultation bilaterally. ABDOMEN: Nondistended, nontender. No rebound. No guarding. EXTREMITIES: Full range of motion. NEUROLOGIC: Oriented x3. IMAGING DATA: CT scan, I did personally review the radiologist's report, reviewed the imaging, which shows a partial small-bowel obstruction. ASSESSMENT: Partial small bowel obstruction. PLAN: The patient is doing very well. She is ambulating. She has essentially no pain. Having bowel movements. We will advance her diet to full liquid diet today and see if she can be discharged preferably in the next 24 hours. Gaurang Bneson MD /[phone]
[2021-05-17] MEDS: Magnesium Sulfate/Water 2 GM/50 ML BAG IV SCH ×3 (13:44→23:36)
[2021-05-17] MEDS: Dextrose 5%-Lactated Ringers 1,000 ML IV SCH (19:53)
[2021-05-17] MEDS ORDERED: Pantoprazole 40 MG Vial IVPUSH SCH (21:00)
[2021-05-18] MEDS: Magnesium Hydroxide 400 MG/5 ML Susp 30 ML Cup PO SCH ×2 (02:04→10:27)
[2021-05-18] MEDS: Magnesium Sulfate/Water 2 GM/50 ML BAG IV SCH (05:18)
[2021-05-18] MEDS: Dextrose 5%-Lactated Ringers 1,000 ML IV SCH (05:35)
--- NOTE | 2021-05-18 07:18 | PCM.DCSUM1 ---
Discharge Summary - Hospital Course HPI Initial Comments: Latha was referred to [facility] from [place] ED for a partial small bowel obstruction. Since admission Latha has had no pain. She initially was NPO then advanced to a Full Liquid diet. Eating and having BMs without any pain. Condition is stable and she is able to be discharged to home. - Discharge Data Discharge Date: 05/18/21 Discharge Disposition: Home, Self-Care 01 Condition: Good - Referral to Home Health Primary Care Physician: PCP None - Discharge Diagnosis/Problem(s) (1) Partial small bowel obstruction SNOMED Code(s): 740450359 ICD Code: K56.600 - PARTIAL INTESTINAL OBSTRUCTION, UNSPECIFIED TO CAUSE Status: Acute Current Visit: Yes - Patient Instructions Diet: Drink 8-10+ Glasses/Day Diet, Other: Full liquid diet until next appointment Activity: As Tolerated Driving: May Drive Today Showering/Bathing: May Shower Notify Provider of: Fever, Increased Pain, Nausea and/or Vomiting - Discharge Plan Home Medications: Home Meds Cholecalciferol (Vitamin D3) [Vitamin D] 1,000 unit PO BID 02/15/18 [History] Gabapentin [Neurontin] 300 mg PO TID 02/15/18 [History] Vitamin B Complex 1 cap PO BID 02/15/18 [History] Cyanocobalamin/Folic Acid [Vitamin Y39-Ebunz Acid] 1 each PO BID 07/09/20 [History] lisinopriL [Lisinopril] 10 mg PO DAILY 07/09/20 [History] Diphenoxylate HCl/Atropine [Lomotil] 1 each PO QID PRN 01/12/21 [History] Lipase/Protease/Amylase [Creon Dr 36,000 Units Capsule] 1 each PO QID 01/12/21 [History] Multivitamin [Multi-Day Vitamins] 1 each PO BID 01/12/21 [History] Beta-Carotene [Beta Carotene] 25,000 unit PO DAILY 05/16/21 [History] Bismuth Subsalicylate 30 ml PO BID 05/16/21 [History] Referrals: Anusha Sampson PA-C [Physician Neonatal Nurse] - 05/29/21 10:00 am - Discharge Summary/Plan Comment DC Time >30 min.: No Discharge Summary/Plan Comment: Resume Home Medications. Full Liquid Diet until follow up appointment. Anusha Alberto 05/18/2021 - General Info Date of Service: 05/18/21 Functional Status: Reports: Tolerating Diet - Review of Systems General: Reports: No Symptoms HEENT: Reports: No Symptoms Pulmonary: Reports: No Symptoms Cardiovascular: Reports: No Symptoms Gastrointestinal: Reports: No Symptoms Genitourinary: Reports: No Symptoms Musculoskeletal: Reports: No Symptoms Skin: Reports: No Symptoms Neurological: Reports: No Symptoms Psychiatric: Reports: No Symptoms - Patient Data Vitals - Most Recent: Last Vital Signs Temp 95.9 F L 05/18/21 02:19 Pulse 59 L 05/18/21 02:19 Resp 18 05/18/21 02:19 BP 145/60 H 05/18/21 02:19 Pulse Ox 96 05/18/21 02:19 Weight - Most Recent: 106 lb I&O - Last 24 hours: Intake & Output 05/17/21 05/18/21 05/18/21 22:59 06:59 14:59 Intake Total 120 2608 Output Total 900 950 Balance -780 1658 Lab Results - Last 24 hrs: Laboratory Results - last 24 hr 05/17/21 05/18/21 05/18/21 Range/Units 06:59 05:40 05:40 WBC 3.0 L (4.5-11.0) K/uL RBC 3.77 (3.30-5.50) M/uL Hgb 11.8 L (12.0-15.0) g/dL Hct 35.7 L (36.0-48.0) % MCV 95 (80-98) fL MCH 31 (27-31) pg MCHC 33 (32-36) % Plt Count 180 (150-400) K/uL Sodium 148 (140-148) mmol/L Potassium 3.6 (3.6-5.2) mmol/L Chloride 113 H (100-108) mmol/L Carbon Dioxide 27 (21-32) mmol/L Anion Gap 11.6 (5.0-14.0) mmol/L BUN 6 L (7-18) mg/dL Creatinine 0.7 (0.6-1.0) mg/dL Est Cr Clr Drug Dosing 51.90 mL/min Estimated GFR (MDRD) > 60 (>60) Glucose 98 (74-106) mg/dL Calcium 7.9 L (8.5-10.1) mg/dL Phosphorus 3.2 (2.5-4.9) mg/dL Magnesium 2.8 H D (1.8-2.4) mg/dL Ferritin 38 (8-388) ng/ml Total Bilirubin 0.7 (0.2-1.0) mg/dL AST 20 (15-37) U/L ALT 28 (12-78) U/L Alkaline Phosphatase 101 (46-116) U/L Total Protein 5.1 L (6.4-8.2) g/dL Albumin 2.8 L (3.4-5.0) g/dL Globulin 2.3 (2.3-3.5) g/dL Albumin/Globulin Ratio 1.2 (1.2-2.2) Med Orders - Current: Current Medications Acetaminophen (Acetaminophen 325 Mg Tab) 650 mg PO Q6H PRN PRN Reason: Pain Docusate Sodium (Docusate Sodium 100 Mg Cap) 100 mg PO BID [facility] Last Admin: 05/17/21 21:19 Dose: Not Given Documented by: Hydromorphone HCl (Hydromorphone 0.5 Mg/0.5 Ml Syringe) 0.5 mg IVPUSH Q2H PRN PRN Reason: Pain (moderate 4-6) Dextrose/Lactated Ringer's (Dextrose 5%-Lactated Ringers) 1,000 mls @ 100 mls/hr IV ASDIRECTED [facility] Last Admin: 05/18/21 05:35 Dose: 100 mls/hr Documented by: Magnesium Sulfate (Magnesium Sulfate In Water 2 Gm/50 Ml) 2 gm in 50 mls @ 25 mls/hr IV Q6H [facility] Stop: 05/19/21 07:59 Last Admin: 05/18/21 05:18 Dose: 25 mls/hr Documented by: Magnesium Hydroxide (Magnesium Hydroxide 400 Mg/5 Ml Susp 30 Ml Cup) 30 ml PO Q8H [facility] Last Admin: 05/18/21 02:04 Dose: Not Given Documented by: Ondansetron HCl (Ondansetron 4 Mg/2 Ml Sdv) 4 mg IVPUSH Q4H PRN PRN Reason: Nausea/Vomiting Pantoprazole Sodium (Pantoprazole 40 Mg Vial) 40 mg IVPUSH BEDTIME [facility] Last Admin: 05/17/21 21:19 Dose: 40 mg Documented by: Polyethylene Glycol (Polyethylene Glycol 3350 Powder 17 Gm Packet) 68 gm PO DAILY [facility] Last Admin: 05/17/21 10:05 Dose: Not Given Documented by: Discontinued Medications Multivitamins/Minerals 10 ml/Thiamine HCl 200 mg/ Zinc 1 ml / Lactated Ringer's 1,013 mls @ 100 mls/hr IV ONETIME ONE Stop: 05/17/21 20:07 Last Admin: 05/17/21 09:00 Dose: 100 mls/hr Documented by: Potassium Chloride 20 meq/Lidocaine HCl 2 ml/ Sodium Chloride 112 mls @ 56 mls/hr IV Q2H [facility] Stop: 05/17/21 12:59 Last Admin: 05/17/21 08:52 Dose: 56 mls/hr Documented by: Pantoprazole Sodium (Pantoprazole 40 Mg Vial) 40 mg IVPUSH Q24H [facility] Last Admin: 05/16/21 23:51 Dose: 40 mg Documented by: - Exam Quality Assessment: Reports: DVT Prophylaxis General: Reports: Alert, Oriented, Cooperative Neck: Reports: Supple Lungs: Reports: Clear to Auscultation, Normal Respiratory Effort Cardiovascular: Reports: Regular Rate, Regular Rhythm GI/Abdominal Exam: Normal Bowel Sounds, Soft, Non-Tender (Female) Exam: Deferred Rectal (Female) Exam: Deferred Back Exam: Reports: Normal Inspection, Full Range of Motion Extremities: Normal Inspection, No Pedal Edema Skin: Reports: Warm, Dry, Intact Neurological: Reports: Normal Gait Psy/Mental Status: Reports: Alert, Normal Affect, Normal Mood
--- NOTE | 2021-05-18 09:34 | CR ---
Abdomen 2V AP Flat Upright CLINICAL HISTORY: Partial small bowel obstruction FINDINGS: No free air is identified. Small intestinal gas pattern is nonacute. There is some persistent dilated transverse colon in the mid abdomen similar to prior study Incidental note of a linear metal radiopacity in the left breast consistent with a portion of a retained hookwire from previous localization. Review of old films shows this to be present in 2018 IMPRESSION: Nonacute intestinal gas pattern Retained localization wire left breast
[2021-05-18] MEDS: Polyethylene Glycol 3350 Powder 17 GM Packet PO SCH (10:27)
[2021-05-18] MEDS: Docusate Sodium 100 MG Cap PO SCH (10:27)
== END 2021-05-18 11:30 | disposition home or self-care (01) | DRG 389 ==
LOC: JP.MS 22:36
PROVIDERS: ADMIT Physician Assistant Medical; ATTEND Physician Assistant Medical
DX: K56.600 Partial intestinal obstruction, unspecified as to cause (principal); Z68.1 Body mass index [BMI] 19.9 or less, adult; H54.7 Unspecified visual loss; E66.9 Obesity, unspecified; K52.9 Noninfective gastroenteritis and colitis, unspecified; K21.9 Gastro-esophageal reflux disease without esophagitis; K80.20 Calculus of gallbladder without cholecystitis without obstruction; K57.90 Diverticulosis of intestine, part unspecified, without perforation or abscess without bleeding; E55.9 Vitamin D deficiency, unspecified; E53.9 Vitamin B deficiency, unspecified; Z90.49 Acquired absence of other specified parts of digestive tract; Z90.710 Acquired absence of both cervix and uterus; Z79.899 Other long term (current) drug therapy; Z98.84 Bariatric surgery status; Z87.442 Personal history of urinary calculi
CPT/HCPCS: 36415; 74019; 74019-26; 80053; 82728; 83735; 84100; 85025; 85027; C9113; J3411; J3475; J3480; J7120; J7121